=== PATIENT | female | born 1950 | race American Indian/Alaskan Native ===

== ENCOUNTER 2018-09-08 16:45 | Emergency (ER) | payer SELFPAY ==
--- NOTE | 2018-09-08 21:13 | Emergency Department Report ---
HPI - General Chief Complaint: Pain General Time Seen by Provider: 09/08/18 20:38 - HPI HPI: Room 3 The patient is a 68-year-old female presenting with a chief complaint of dizziness and medication refill. The patient states last night she tried to go to the bathroom and felt dizzy causing her to fall. Patient denies loss of consciousness but complains of mild headache currently. Patient states she also had 6 semisolid stools earlier today that were yellow in color. The patient states she is also run out of all of her medications for 1 week. When asked how she is feeling now the patient states she is asymptomatic Location: [See above] Duration: [See above] Quality: [See above] Severity: [See above] Modifying factors: [see above] Context: [see above] Mode of transportation: [not driving] ED Past Medical Hx - Past Medical History Hx Hypertension: Yes Hx CVA: Yes (left meg weakness) - Surgical History Past Surgical History?: No - Family History Family history: no significant - Social History Smoking Status: Former Smoker Substance Use Type: None - Medications Home Medications: Home Medications Medication Instructions Recorded Confirmed Last Taken Type Amlodipine Besylate [Norvasc] 2.5 mg PO DAILY 09/08/18 09/08/18 Unknown History AtorvaSTATin [Lipitor] 40 mg PO QHS #30 tablet 09/08/18 Unknown Rx Gabapentin [Neurontin] 100 mg PO Q8HR 09/08/18 09/08/18 Unknown History Losartan Potassium 100 mg PO DAILY #30 tablet 09/08/18 Unknown Rx Methocarbamol [Robaxin] 500 mg PO BID 09/08/18 09/08/18 Unknown History Oxybutynin [Ditropan] 5 mg PO BID 09/08/18 09/08/18 Unknown History Pantoprazole [Protonix TAB] 40 mg PO QDAY #30 tablet 09/08/18 Unknown Rx traMADol [Ultram 50 MG tab] 50 mg PO Q4HR 09/08/18 09/08/18 Unknown History ED Review of Systems ROS: Stated complaint: DIARRHEA Other details as noted in HPI Constitutional: no symptoms reported Eyes: denies: eye pain ENT: denies: throat pain Respiratory: no symptoms reported Cardiovascular: denies: chest pain Endocrine: no symptoms reported Gastrointestinal: denies: abdominal pain, nausea, vomiting, diarrhea, melena Genitourinary: denies: dysuria Musculoskeletal: denies: back pain Neurological: headache, other (dizziness) Physical Exam - Physical Exam Vital Signs: Vital Signs 09/08/18 17:12 Temperature 98.1 F Pulse Rate 99 H Respiratory 18 Rate Blood Pressure 149/87 [Right] O2 Sat by Pulse 97 Oximetry Physical Exam: GENERAL: The patient is well-developed well-nourished female lying on stretcher not appearing to be in acute distress. [] HEENT: Normocephalic. Atraumatic. Extraocular motions are intact. Patient has moist mucous membranes. NECK: Supple. Trachea midline CHEST/LUNGS: Clear to auscultation. There is no respiratory distress noted. HEART/CARDIOVASCULAR: Regular. There is no tachycardia. There is no gallop rub or murmur. ABDOMEN: Abdomen is soft, nontender. Patient has normal bowel sounds. There is no abdominal distention. SKIN: There is no rash. There is no edema. There is no diaphoresis. NEURO: The patient is awake, alert, and oriented. The patient is cooperative. 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 Cranial nerves II through XII grossly intact. The patient has normal speech and gait. MUSCULOSKELETAL: There is no evidence of acute injury. ED Course Vital Signs 09/08/18 17:12 Temperature 98.1 F Pulse Rate 99 H Respiratory 18 Rate Blood Pressure 149/87 [Right] O2 Sat by Pulse 97 Oximetry ED Medical Decision Making - Lab Data Result diagrams: 09/08/18 21:24 09/08/18 21:24 Laboratory Tests 09/08/18 09/08/18 21:24 21:24 WBC 5.5 RBC 5.07 H Hgb 14.3 Hct 42.1 MCV 83 MCH 28 MCHC 34 RDW 14.2 Plt Count 207 Lymph % (Auto) [employer] Seg Neutrophils % [employer] Sodium 132 L Potassium 3.0 L Chloride 90.0 L Carbon Dioxide 28 Anion Gap 17 BUN 16 Creatinine 0.7 Estimated GFR > 60 BUN/Creatinine Ratio 23 Glucose 126 H Calcium 10.1 Total Bilirubin 0.40 AST 20 ALT 35 Alkaline Phosphatase 62 Total Creatine Kinase 162 H CK-MB (CK-2) 2.6 CK-MB (CK-2) Rel Index 1.6 Troponin T < 0.010 Total Protein 8.1 Albumin 5.0 Albumin/Globulin Ratio 1.6 Lipase 42 - Radiology Data Radiology results: report reviewed (CT head), image reviewed (CT head) [facility] [address] [place] [address] Cat Scan Report Signed Patient: HANK ALEXANDRE MR#: [id number] : 1950 Acct:[id number] Age/Sex: 68 / F ADM Date: 09/08/18 Loc: ED Attending Dr: Ordering Physician: STACI ZHAO MD Date of Service: 09/08/18 Procedure(s): CT head/brain wo con Accession Number(s): [id number] cc: STACI ZHAO MD CT head/brain wo con INDICATION / CLINICAL INFORMATION: 68 years Female; dizziness, headache, hypertension. TECHNIQUE: Routine CT head without contrast. All CT scans at this location are performed using CT dose reduction for ALARA by means of automated exposure control. COMPARISON: None. FINDINGS: BRAIN / INTRACRANIAL CONTENTS: No acute hemorrhage, mass effect, midline shift, hydrocephalus, or acute, large territorial infarct. Mild cerebral atrophy. 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 There are [id number] areas of decreased attenuation in the white matter of the cerebral hemispheres, as well as the gangliocapsular regions. These are nonspecific findings and may be related to microangiopathy (hypertension, diabetes, atherosclerosis), given the patient's age. It might be difficult to evaluate for small areas of ischemia without diffusion imaging by MRI. CRANIOCERVICAL JUNCTION: No significant abnormality. ORBITS: No significant abnormality of visualized orbits. SINUSES / MASTOIDS: No significant abnormality of the visualized paranasal sinuses or mastoid air cells. ADDITIONAL FINDINGS: Atherosclerotic disease is seen in the anterior circulation. IMPRESSION: 1. No focal mass, hemorrhage, hydrocephalus, or acute, large territorial infarct. Follow-up with diffusion imaging by MRI, as clinically warranted. Signer Name: Gael Goddard MD, III Signed: 09/08/2018 10:28 PM Workstation Name: [id number] Transcribed By: HR Dictated By: Gael Goddard MD Electronically Authenticated By: Gael Goddard MD Signed Date/Time: 09/08/182227 DD/ 25 TD/TT: - Differential Diagnosis hypertensive urgency, headache, vertigo Critical care attestation.: If time is entered above; I have spent that time in minutes in the direct care of this critically ill patient, excluding procedure time. ED Disposition Clinical Impression: Hypertension, Hypokalemia Disposition: - TO HOME OR SELFCARE Is pt being admited?: No Does the pt Need Aspirin: No Condition: Stable Instructions: Hypertension (ED) Additional Instructions: Return to the emergency department immediately should you develop worsening symptoms, fever, inability to tolerate food or liquid or any other concerns. Prescriptions: AtorvaSTATin [Lipitor] 40 mg PO QHS #30 tablet Losartan Potassium 100 mg PO DAILY #30 tablet Pantoprazole [Protonix TAB] 40 mg PO QDAY #30 tablet Referrals: [facility] [Outside] - 3-5 Days Time of Disposition: 23:12
[2018-09-08 21:42] LABS: Hematocrit 42.1 % (30.3-42.9); Hemoglobin 14.3 gm/dl (10.1-14.3); Mean Corpuscular HGB Conc 34 % (30-34); Mean Corpuscular Volume 83 fl (79-97); Platelet Count 207 K/mm3 (140-440); Red Blood Count 5.07 M/mm3 (3.65-5.03); Red Cell Distribution Width 14.2 % (13.2-15.2)
[2018-09-08 21:45] VITALS: BP 131/75
[2018-09-08 22:06] LABS: Creatine Kinase MB 2.6 ng/mL (0.0-4.0)
[2018-09-08 22:07] LABS: Alanine Aminotransferase 35 units/L (7-56); BUN/Creatinine Ratio 23; Blood Urea Nitrogen 16 mg/dL (7-17); Calcium 10.1 mg/dL (8.4-10.2); Hemolysis Index 11
--- NOTE | 2018-09-08 22:32 | Cat Scan Report ---
CT head/brain wo con INDICATION / CLINICAL INFORMATION: 68 years Female; dizziness, headache, hypertension. TECHNIQUE: Routine CT head without contrast. All CT scans at this location are performed using CT dos e reduction for ALARA by means of automated exposure control. COMPARISON: None. FINDINGS: BRAIN / INTRACRANIAL CONTENTS: No acute hemorrhage, mass effect, midline shift, hydrocephalus, or acu te, large territorial infarct. Mild cerebral atrophy. 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 There are [id number] areas of decreased attenuation in the white matter of the cerebral hemisph eres, as well as the gangliocapsular regions. These are nonspecific findings and may be related to mi croangiopathy (hypertension, diabetes, atherosclerosis), given the patient's age. It might be difficu lt to evaluate for small areas of ischemia without diffusion imaging by MRI. CRANIOCERVICAL JUNCTION: No significant abnormality. ORBITS: No significant abnormality of visualized orbits. SINUSES / MASTOIDS: No significant abnormality of the visualized paranasal sinuses or mastoid air geovani ls. ADDITIONAL FINDINGS: Atherosclerotic disease is seen in the anterior circulation. IMPRESSION: 1. No focal mass, hemorrhage, hydrocephalus, or acute, large territorial infarct. Follow-up with diff usion imaging by MRI, as clinically warranted. Signer Name: Gael Goddard MD, III Signed: 09/08/2018 10:28 PM Workstation Name: [id number]
[2018-09-08] MEDS ORDERED: K-DUR PO ONE (22:38)
[2018-09-08 22:43] LABS: RBC Morphology Normal; Total Cells Counted 100
== END 2018-09-08 23:30 | disposition home or self-care (01) ==
LOC: ED 16:45
DX: R42 Dizziness and giddiness (principal); R19.7 Diarrhea, unspecified; I10 Essential (primary) hypertension; E87.6 Hypokalemia; I69.354 Hemiplegia and hemiparesis following cerebral infarction affecting left non-dominant side; Z87.891 Personal history of nicotine dependence; Z79.899 Other long term (current) drug therapy; Z76.0 Encounter for issue of repeat prescription
CPT/HCPCS: 36415; 70450; 80053; 82550; 82553; 83690; 84484; 85007; 85025